=== PATIENT | female | born 1985 | race Caucasian/White ===

== ENCOUNTER 2017-01-24 16:27 | Emergency (ER) | payer BC ==
[2017-01-24 17:20] VITALS: BP 134/86
--- NOTE | 2017-01-24 17:24 | ED.ADGEN ---
Past History Past Medical History: Diabetes Past Surgical History: Cholecystectomy, , Other Alcohol Use: None Drug Use: None Adult General HPI HPI Patient is a 31-year-old female presents emergency department complaining of vaginal bleeding that has been ongoing intermittently for last 3 weeks. She is proximally 6 weeks . She is a . She has had serial clots from 3 times previous to today and they have been continuing to increase. However, the patient did have a clot that she noticed early this morning prior to her shower. She has had no bleeding since that time. She did previously go to [facility] but got tired of waiting after they colin her labs and decided to come here. Review of Systems Review of Systems Constitutional: Denies fever or chills [] Eyes: Denies change in visual acuity, redness, or eye pain [] HENT: Denies nasal congestion or sore throat [] Respiratory: Denies cough or shortness of breath [] Cardiovascular: No additional information not addressed in HPI [] GI: Denies abdominal pain, nausea, vomiting, bloody stools or diarrhea [] : Denies dysuria or hematuria [] Musculoskeletal: Denies back pain or joint pain [] Integument: Denies rash or skin lesions [] Neurologic: Denies headache, focal weakness or sensory changes [] Endocrine: Denies polyuria or polydipsia [] Allergies Allergies Allergies Coded Allergies Type Severity Reaction Last Updated Verified No Known Drug Allergies 02/13/16 No Physical Exam Physical Exam Constitutional: Well developed, well nourished, no acute distress, non-toxic appearance. [] HENT: Normocephalic, atraumatic, bilateral external ears normal, oropharynx moist, no oral exudates, nose normal. [] Eyes: PERRLA, EOMI, conjunctiva normal, no discharge. [] Neck: Normal range of motion, no tenderness, supple, no stridor. [] Cardiovascular:Heart rate regular rhythm, no murmur [] Lungs & Thorax: Bilateral breath sounds clear to auscultation [] Abdomen: Bowel sounds normal, soft, no tenderness, no masses, no pulsatile masses. [] Skin: Warm, dry, no erythema, no rash. [] Back: No tenderness, no CVA tenderness. [] Extremities: No tenderness, no cyanosis, no clubbing, ROM intact, no edema. [] Neurologic: Alert and oriented X 3, normal motor function, normal sensory function, no focal deficits noted. [] Psychologic: Affect normal, judgement normal, mood normal. [] Current Patient Data Vital Signs Vital Signs Date Time Temp Pulse Resp B/P Pulse Ox O2 Delivery O2 Flow Rate FiO2 01/24/17 16:27 97.9 73 20 Room Air EKG EKG [] Radiology/Procedures Radiology/Procedures [] Course & Med Decision Making Course & Med Decision Making Pertinent Labs and Imaging studies reviewed. (See chart for details) The patient looks well here in emergency department. She is having no bleeding. She is having no pain. Her Quant was sent to us from [facility] and is greater than 14,000. I did describe to the patient that at this point in her there would not be much to do about a miscarriage any way. The patient is in a hurry to get out of the department as she is planning to leave on a road trip in the next 15-20 minutes. I did explain that is reassuring that her Quant continues to rise she and that she has had no further bleeding. [] Final Impression Final Impression Threatened Miscarriage[] Problems: Dragon Disclaimer Dragon Disclaimer This electronic medical record was generated, in whole or in part, using a voice recognition dictation system. JANE MORSE MD Jan 24, 2017 17:24
== END 2017-01-24 17:34 | disposition home or self-care (01) ==
LOC: ER 16:27
DX: O20.0 Threatened abortion (principal); E11.9 Type 2 diabetes mellitus without complications; Z3A.01 Less than 8 weeks gestation of pregnancy
CPT/HCPCS: 99281

== ENCOUNTER 2018-09-26 19:22 | Emergency (ER) | payer BC ==
[~2018-09-26] VITALS: Ht 154.9 cm; Wt 135.6 kg
--- NOTE | 2018-09-26 19:26 | ED.ADGEN ---
Past History Past Medical History: Anxiety, Diabetes Past Surgical History: Cholecystectomy, , Other Alcohol Use: None Drug Use: None Adult General Chief Complaint Chief Complaint ".. I ve been having some nausea and vomiting and diarrhea... My whole abdomen hurts..." HPI HPI Patient is a 32 year old female who presents with generalized abdomen pain. Pt. denies any bad food intake. Pt. denies travel or specific ill contacts. Pt. has been eating the past several days, but states she frequently vomits afterwards. Pt. states she had at least 3 diarrhea stools a day. Pt. has hx of IBS , DM and Anxiety. Pt. prior gall bladder surgery, , Lumbar surgery. Pt. is morbidly obese. Pt. normally follows at for care. Review of Systems Review of Systems Constitutional: Denies fever or chills [] Eyes: Denies change in visual acuity, redness, or eye pain [] HENT: Denies nasal congestion or sore throat [] Respiratory: Denies cough or shortness of breath [] Cardiovascular: No additional information not addressed in HPI [] GI: Complaints of abdominal pain, nausea, vomiting, diarrhea [] : Denies dysuria or hematuria [] Musculoskeletal: Denies back pain or joint pain [] Integument: Denies rash or skin lesions [] Neurologic: Denies headache, focal weakness or sensory changes [] Endocrine: Denies polyuria or polydipsia [] All other systems were reviewed and found to be within normal limits, except as documented in this note. Family History Family History Diabetes and hypertension Current Medications Current Medications Current Medications Medications (Trade) Dose Ordered Sig/Ag Start Time Stop Time Status Last Admin Dose Admin Diphenhydramine HCl (Benadryl) 50 mg 1X ONCE 09/27/18 00:30 09/27/18 00:43 DC 09/27/18 00:36 50 MG Famotidine (Pepcid Vial) 20 mg 1X ONCE 09/26/18 19:30 09/26/18 19:39 DC 09/26/18 19:56 20 MG Info (Do NOT chart on this entry -- for MONITORING) 1 each PRN DAILY PRN 09/27/18 00:45 09/27/18 04:00 DC Iohexol (Omnipaque 240 Mg/ml) 30 ml 1X ONCE 09/27/18 00:45 09/27/18 00:46 DC Iohexol (Omnipaque 300 Mg/ml) 60 ml 1X ONCE 09/27/18 00:45 09/27/18 00:46 DC Lactated Ringer's 1,000 ml @ 1,000 mls/hr Q1H 09/26/18 19:28 09/26/18 20:27 DC 09/26/18 19:56 1,000 MLS/HR Magnesium Hydroxide (Milk Of Magnesia) 2,400 mg 1X ONCE 09/26/18 23:45 09/26/18 23:58 DC 09/26/18 23:55 2,400 MG Ondansetron HCl (Zofran) 8 mg 1X ONCE 09/26/18 19:30 09/26/18 19:39 DC 09/26/18 19:56 8 MG Prochlorperazine Edisylate (Compazine) 10 mg 1X ONCE 09/27/18 00:30 09/27/18 00:43 DC 09/27/18 00:36 10 MG See nursing for home medications Allergies Allergies Allergies Coded Allergies Type Severity Reaction Last Updated Verified No Known Drug Allergies 09/27/18 No Physical Exam Physical Exam Constitutional: Moderately acute distress, non-toxic appearance. [] HENT: Normocephalic, atraumatic, bilateral external ears normal, oropharynx moist, no oral exudates, nose normal. [] Eyes: PERRLA, EOMI, conjunctiva normal, no discharge. [] Neck: Normal range of motion, no tenderness, supple, no stridor. [] Cardiovascular:Heart rate regular rhythm, no murmur [] Lungs & Thorax: Bilateral breath sounds equal at apexes with some bilateral crackles at bilateral bases auscultation [] Abdomen: Bowel sounds normal, soft, generalized tenderness, more local sensation in the epigastric area, no masses, no pulsatile masses. [] Old surgery scars. Morbidly obese. Patient declines rectal exam at this time. Patient declines pelvic exam. Skin: Warm, dry, no erythema, no rash. [] Back: No tenderness, no CVA tenderness. [] Extremities: No tenderness, no cyanosis, no clubbing, ROM intact, ankle bilateral edema. [] No true psoas or heel tap. Neurologic: Alert and oriented X 3, normal motor function, normal sensory function, no focal deficits noted. [] Psychologic: Affect anxious, judgement normal, mood normal. [] Current Patient Data Vital Signs Vital Signs Date Time Temp Pulse Resp B/P (MAP) Pulse Ox O2 Delivery O2 Flow Rate FiO2 09/27/18 01:52 75 20 132/90 (104) 96 Room Air 09/26/18 19:25 97.4 Lab Results Laboratory Tests Test 09/26/18 19:45 09/26/18 19:50 Urine Collection Type Unknown Urine Color Yellow Urine Clarity Hazy Urine pH 7.5 Urine Specific [place] 1.015 Urine Protein Neg (NEG-TRACE) Urine Glucose (UA) 100 mg/dL (NEG) Urine Ketones (Stick) Neg mg/dL (NEG) Urine Blood Neg (NEG) Urine Nitrite Neg (NEG) Urine Bilirubin Neg (NEG) Urine Urobilinogen Dipstick 0.2 mg/dL (0.2 mg/dL) Urine Leukocyte Esterase Neg (NEG) Urine RBC Occ /HPF (0-2) Urine WBC 1-4 /HPF (0-4) Urine Squamous Epithelial Cells Many /LPF Urine Amorphous Sediment Present /HPF Urine Bacteria Few /HPF (0-FEW) Urine Opiates Screen Neg (NEG) Urine Methadone Screen Neg (NEG) Urine Barbiturates Neg (NEG) Urine Phencyclidine Screen Neg (NEG) Urine Amphetamine/Methamphetamine Neg (NEG) Urine Benzodiazepines Screen Neg (NEG) Urine Cocaine Screen Neg (NEG) Urine Cannabinoids Screen Neg (NEG) Urine Ethyl Alcohol Neg (NEG) White Blood Count 8.1 x10^3/uL (4.0-11.0) Red Blood Count 4.48 x10^6/uL (3.50-5.40) Hemoglobin 12.4 g/dL (12.0-15.5) Hematocrit 37.4 % (36.0-47.0) Mean Corpuscular Volume 84 fL (79-100) Mean Corpuscular Hemoglobin 28 pg (25-35) Mean Corpuscular Hemoglobin Concent 33 g/dL (31-37) Red Cell Distribution Width 13.9 % (11.5-14.5) Platelet Count 383 x10^3/uL (140-400) Neutrophils (%) (Auto) 65 % (31-73) Lymphocytes (%) (Auto) 26 % (24-48) Monocytes (%) (Auto) 7 % (0-9) Eosinophils (%) (Auto) 2 % (0-3) Basophils (%) (Auto) 1 % (0-3) Neutrophils # (Auto) 5.3 x10^3uL (1.8-7.7) Lymphocytes # (Auto) 2.1 x10^3/uL (1.0-4.8) Monocytes # (Auto) 0.5 x10^3/uL (0.0-1.1) Eosinophils # (Auto) 0.2 x10^3/uL (0.0-0.7) Basophils # (Auto) 0.1 x10^3/uL (0.0-0.2) POC Urine HCG, Qualitative hcg negative (Negative) Sodium Level 139 mmol/L (136-145) Potassium Level 4.2 mmol/L (3.5-5.1) Chloride Level 100 mmol/L (98-107) Carbon Dioxide Level 29 mmol/L (21-32) Anion Gap 10 (6-14) Blood Urea Nitrogen 11 mg/dL (7-20) Creatinine 0.8 mg/dL (0.6-1.0) Estimated GFR (Cockcroft-Gault) 82.1 Glucose Level 108 mg/dL (70-99) H Calcium Level 9.3 mg/dL (8.5-10.1) Total Bilirubin 0.3 mg/dL (0.2-1.0) Direct Bilirubin 0.1 mg/dL (0.0-0.2) Aspartate Amino Transferase (AST) 40 U/L (15-37) H Alanine Aminotransferase (ALT) 49 U/L (14-59) Alkaline Phosphatase 65 U/L (46-116) Total Protein 8.0 g/dL (6.4-8.2) Albumin 3.5 g/dL (3.4-5.0) EKG EKG [] Radiology/Procedures Radiology/Procedures CT findings show mild. Cystic inflammatory changes consistent with possible cystitis. Fatty liver changes. No evidence of bowel obstruction or inflammation. Appendix is normal. Course & Med Decision Making Course & Med Decision Making Pertinent Labs and Imaging studies reviewed. (See chart for details). She stay on a clear fluid diet only. No solid or milk products. Follow-up primary care. Take Zofran for nausea and vomiting. Tylenol and ibuprofen for pain. Must have reexam if no improvement. At time of discharge patient reports marked improvement. Patient refuses admission at this time. [] Final Impression Final Impression 1. Nausea, Vomiting , Diarrhea. 2. Abdomen Pain[] Dragon Disclaimer Dragon Disclaimer This electronic medical record was generated, in whole or in part, using a voice recognition dictation system. LARS KRAUSE MD Sep 26, 2018 19:25
[2018-09-26] MEDS ORDERED: IV RINGERS SOLUTION,LACTATED 1,000 ML IV SCH (19:28)
[2018-09-26] MEDS ORDERED: FAMOTIDINE 20 MG/2 ML VIAL IVP ONE (19:30)
[2018-09-26] MEDS ORDERED: ONDANSETRON PF 4 MG/2 ML VIAL. IV ONE (19:30)
[2018-09-26 20:09] LABS: AMPHETAMINE/METHAMPHETAMINE NEG (NEG); BARBITURATES NEG (NEG); BENZODIAZEPINES NEG (NEG); CANNABINOIDS NEG (NEG); COCAINE NEG (NEG); METHADONE NEG (NEG); OPIATES NEG (NEG); PHENCYCLIDINE NEG (NEG)
[2018-09-26 20:10] LABS: BACTERIA,URINE FEW /HPF (0-FEW); BILIRUBIN,URINE NEG (NEG); CLARITY,URINE HAZY; COLOR,URINE YELLOW; GLUCOSE,URINE 100 mg/dL (NEG); NITRITE,URINE NEG (NEG); RBC,URINE OCC /HPF (0-2); SQUAMOUS EPITHELIAL CELL,UR MANY /LPF; UROBILINOGEN,URINE 0.2 mg/dL (0.2 mg/dL)
[2018-09-26 20:11] LABS: AMORPHOUS SEDIMENT,UR PRESENT /HPF
[2018-09-26 20:14] LABS: BASO # 0.1 x10^3/uL (0.0-0.2); BASO % 1 % (0-3); EOS # 0.2 x10^3/uL (0.0-0.7); EOS % 2 % (0-3); HEMATOCRIT 37.4 % (36.0-47.0); HEMOGLOBIN 12.4 g/dL (12.0-15.5); LYMPH # 2.1 x10^3/uL (1.0-4.8); LYMPH % 26 % (24-48); MEAN CORPUSCULAR HEMOGLOBIN 28 pg (25-35); MEAN CORPUSCULAR HGB CONC 33 g/dL (31-37); MEAN CORPUSCULAR VOLUME 84 fL (79-100); MONO # 0.5 x10^3/uL (0.0-1.1); MONO % 7 % (0-9); NEUT # 5.3 x10^3uL (1.8-7.7); NEUT % 65 % (31-73); PLATELET COUNT 383 x10^3/uL (140-400); RED BLOOD COUNT 4.48 x10^6/uL (3.50-5.40); RED CELL DISTRIBUTION WIDTH 13.9 % (11.5-14.5); WHITE BLOOD COUNT 8.1 x10^3/uL (4.0-11.0)
[2018-09-26 20:25] LABS: ALBUMIN 3.5 g/dL (3.4-5.0); CALCIUM 9.3 mg/dL (8.5-10.1); CREATININE 0.8 mg/dL (0.6-1.0); DIRECT BILIRUBIN 0.1 mg/dL (0.0-0.2); GFR 82.1; POTASSIUM 4.2 mmol/L (3.5-5.1); TOTAL BILIRUBIN 0.3 mg/dL (0.2-1.0)
--- NOTE | 2018-09-26 22:04 | RAD ---
EXAM: Frontal view of the chest, AP views of the abdomen in upright and supine positions. CLINICAL INDICATION: AAS - GENERALIZED ABDOMINAL PAIN TODAY COMPARISON: None. FINDINGS and IMPRESSION: The right costophrenic angle is not included in the [id number]. The heart is not enlarged. Mediastinal and hilar contours are normal. No focal parenchymal airspace opacity. No pleural effusion or pneumothorax. No abnormal small or large bowel dilatation. Moderate colonic stool content. No abnormal soft tissue mass effect. No suspicious calcifications are seen. No free intraperitoneal gas. Cholecystectomy clips are seen. Electronically signed by: Phil Chiu MD (09/26/2018 10:01 PM) [facility]
[2018-09-26] MEDS ORDERED: MAGNESIUM HYDROXIDE 2,400 MG/30 ML ORAL.SUSP. PO ONE (23:45)
[2018-09-27] MEDS ORDERED: diphenhydrAMINE 50 MG/ML VIAL IM ONE (00:15)
[2018-09-27] MEDS ORDERED: PROCHLORPERAZINE 10 MG/2 ML VIAL. IM ONE (00:15)
[2018-09-27] MEDS ORDERED: ONDA8TAB12 PO (00:23)
[2018-09-27] MEDS ORDERED: PROCHLORPERAZINE 10 MG/2 ML VIAL. IV ONE (00:30)
[2018-09-27] MEDS ORDERED: diphenhydrAMINE 50 MG/ML VIAL IV ONE (00:30)
[2018-09-27] MEDS ORDERED: IOHEXOL 240 MG/ML 50ML VIAL. PO ONE ×2 (00:45)
[2018-09-27] MEDS ORDERED: CONTRAST GIVEN MC PRN (00:45)
[2018-09-27] MEDS ORDERED: IOHEXOL 300 MG/ML 75 ML VIAL. IV ONE ×2 (00:45)
[2018-09-27 01:52] VITALS: BP 132/90
--- NOTE | 2018-09-27 02:50 | RAD ---
PQRS Compliance Statement: One or more of the following individualized dose reduction techniques were utilized for this examination: 1. Automated exposure control 2. Adjustment of the mA and/or kV according to patient size 3. Use of iterative reconstruction technique CT abdomen/pelvis with contrast 09/27/2018 2:02 AM INDICATION: Abdominal pain for 3 weeks, worsening today COMPARISON: Acute abdominal series September 26, 2018 TECHNIQUE: Multiple axial CT images of the abdomen and pelvis were obtained after the intravenous administration of 75 mL Omnipaque 300. Coronal and sagittal reformats are provided. FINDINGS: Visualized portions of the lung bases are clear. Heart size is within normal limits. No suspicious hepatic masses are identified. Diffuse hypoattenuation of the hepatic parenchyma is suggestive of hepatic steatosis. Liver is homogeneous in enhancement. Spleen, bilateral adrenal glands, and pancreas are normal in appearance. Gallbladder surgically absent. The abdominal aorta is normal in course and caliber. There are no pathologically enlarged lymph nodes in the abdomen and pelvis. There is no abdominal free fluid. There is no free intraperitoneal air. Oral contrast was administered. Opacified bowel loops demonstrate normal mucosal fold pattern. Small and large bowel are normal in caliber. There is no evidence for bowel obstruction. There are no pericolonic inflammatory changes. A normal, nondilated appendix is visualized without adjacent inflammatory changes. The kidneys enhance symmetrically. There is no suspicious renal mass. There is no hydronephrosis. There are no suspected calculi within the kidneys, ureters or urinary bladder. Mild pericystic inflammatory changes are identified which may be seen in the setting of cystitis. Uterus and adnexa are normal in appearance by CT. No suspicious osseous abnormality is identified. IMPRESSION: 1. Mild pericystic inflammatory changes. Correlate with history of cystitis. 2. Diffuse hepatic steatosis. 3. No evidence for bowel structure or inflammation. Appendix is normal. Electronically signed by: Tresa Wong MD (09/27/2018 2:46 AM) [facility]
== END 2018-09-27 03:57 | disposition home or self-care (01) ==
LOC: ER 19:22
DX: R10.84 Generalized abdominal pain (principal); R11.2 Nausea with vomiting, unspecified; R19.7 Diarrhea, unspecified; F41.9 Anxiety disorder, unspecified; E11.9 Type 2 diabetes mellitus without complications; Z90.49 Acquired absence of other specified parts of digestive tract; Z98.890 Other specified postprocedural states
CPT/HCPCS: 36415; 74022; 74177; 80048; 80076; 80307; 81001; 81025; 85025; 96361; 96374; 96375; 99285; J0780; J1200; J2405; J3490; J7120; Q9967; Q9966

== ENCOUNTER 2019-06-16 13:23 | Emergency (ER) | payer BC ==
[~2019-06-16] VITALS: Ht 180.3 cm; Wt 86.2 kg
[~2019-06-16 13:23] MED LIST: ONDA8TAB12 PO
[2019-06-16] MEDS ORDERED: IV NORMAL SALINE 1,000ML 1,000 ML IV SCH (15:20)
--- NOTE | 2019-06-16 15:22 | PHYS DOC ---
Past History Past Medical History: Anxiety, Diabetes Past Surgical History: Cholecystectomy, , Other Alcohol Use: None Drug Use: None Adult General Chief Complaint Chief Complaint: ABDOMINAL PAIN HPI HPI Patient is a 33 year old female who presents with left-sided abdominal pain. Patient notes that she has been having pain for the last 4-5 days along the left side of her abdomen. States it is in her upper abdomen near her rib cage. Also notes that she has noticed what she believes is a possible cyst in the rectal area. This is tender and painful and has been present over the past week. Denies any abnormal drainage from the cyst. Notes that the pain along the left side of her body worsens with movement. States that the pain radiates around towards her upper back. Denies any known injury. Has not been having any feve rs, diarrhea, nausea, or vomiting. Has had history of bariatric surgery in the past and denies any complications related to this. Has been able to eat and drink without difficulty. Review of Systems Review of Systems Constitutional: Denies fever or chills [] Eyes: Denies change in visual acuity, redness, or eye pain [] HENT: Denies nasal congestion or sore throat [] Respiratory: Denies cough or shortness of breath [] Cardiovascular: Denies substernal chest pain or edema[] GI: Abdominal pain, rectal pain, denies nausea, vomiting, bloody stools or diarrhea [] : Denies dysuria or hematuria [] Musculoskeletal: Left-sided rib pain, denies back pain or joint pain [] Integument: Denies rash or skin lesions [] Neurologic: Denies headache, focal weakness or sensory changes [] All other systems were reviewed and found to be within normal limits, except as documented in this note. Allergies Allergies Allergies Coded Allergies Type Severity Reaction Last Updated Verified No Known Drug Allergies 09/27/18 No Physical Exam Physical Exam Constitutional: Alert, afebrile, appears in mild to moderate discomfort. [] HENT: Normocephalic, atraumatic, bilateral external ears normal, oropharynx moist, no oral exudates, nose normal. [] Eyes: PERRLA, EOMI, conjunctiva normal, no discharge. [] Neck: Normal range of motion, no tenderness, supple, no stridor. [] Cardiovascular:Heart rate regular rhythm, no murmur [] Lungs & Thorax: Bilateral breath sounds clear to auscultation, tenderness palpation along anterior lateral chest wall causing reproducible symptoms. [] Abdomen: Bowel sounds normal, soft, no tenderness in all 4 quadrants, no masses, no pulsatile masses. : 1.5 cm external hemorrhoid tender to palpation, no erythema, no drainage, no active bleeding.[] Skin: Warm, dry, no erythema, no rash. [] Back: No tenderness, no CVA tenderness. [] Extremities: No tenderness, no cyanosis, no clubbing, ROM intact, no edema. [] Neurologic: Alert and oriented X 3, normal motor function, normal sensory function, no focal deficits noted. [] Current Patient Data Vital Signs Vital Signs Date Time Temp Pulse Resp B/P (MAP) Pulse Ox O2 Delivery O2 Flow Rate FiO2 06/16/19 17:01 18 96 Room Air Lab Results Laboratory Tests Test 06/16/19 16:36 White Blood Count 8.6 x10^3/uL Red Blood Count 4.25 x10^6/uL Hemoglobin 10.5 g/dL Hematocrit 33.6 % Mean Corpuscular Volume 79 fL Mean Corpuscular Hemoglobin 25 pg Mean Corpuscular Hemoglobin Concent 31 g/dL Red Cell Distribution Width 17.8 % Platelet Count 434 x10^3/uL Neutrophils (%) (Auto) 76 % Lymphocytes (%) (Auto) 17 % Monocytes (%) (Auto) 6 % Eosinophils (%) (Auto) 0 % Basophils (%) (Auto) 0 % Neutrophils # (Auto) 6.5 x10^3uL Lymphocytes # (Auto) 1.5 x10^3/uL Monocytes # (Auto) 0.5 x10^3/uL Eosinophils # (Auto) 0.0 x10^3/uL Basophils # (Auto) 0.0 x10^3/uL Platelet Estimate Pending Urine Collection Type Unknown Urine Color Angy Urine Clarity Hazy Urine pH 8.0 Urine Specific [place] 1.015 Urine Protein 30 mg/dl Urine Glucose (UA) Neg mg/dL Urine Ketones (Stick) 15 mg/dL Urine Blood Trace Urine Nitrite Neg Urine Bilirubin Neg Urine Urobilinogen Dipstick 0.2 mg/dL Urine Leukocyte Esterase Neg Urine RBC 1-2 /HPF Urine WBC 1-4 /HPF Urine Squamous Epithelial Cells Few /LPF Urine Bacteria Few /HPF Urine Hyaline Casts Occ /HPF Urine Mucus Mod /LPF Sodium Level 142 mmol/L Potassium Level 3.9 mmol/L Chloride Level 104 mmol/L Carbon Dioxide Level 30 mmol/L Anion Gap 8 Blood Urea Nitrogen 11 mg/dL Creatinine 0.6 mg/dL Estimated GFR (Cockcroft-Gault) 113.8 BUN/Creatinine Ratio 18 Glucose Level 88 mg/dL Calcium Level 8.4 mg/dL Total Bilirubin 0.2 mg/dL Aspartate Amino Transf (AST/SGOT) 24 U/L Alanine Aminotransferase (ALT/SGPT) 23 U/L Alkaline Phosphatase 102 U/L Total Protein 7.0 g/dL Albumin 3.0 g/dL Albumin/Globulin Ratio 0.8 Current Medications Medications (Trade) Dose Ordered Sig/Ag Route PRN Reason Start Time Stop Time Status Last Admin Dose Admin Fentanyl Citrate (Fentanyl 2ml Vial) 50 mcg PRN Q15MIN PRN IV PAIN GREATER THAN 3/10 06/16/19 15:30 06/17/19 15:29 06/16/19 17:01 Sodium Chloride 1,000 ml @ 1,000 mls/hr Q1H IV 06/16/19 15:20 06/16/19 16:19 DC 06/16/19 17:01 Ondansetron HCl (Zofran) 4 mg 1X ONCE IV 06/16/19 15:30 06/16/19 15:31 DC 06/16/19 17:01 EKG EKG Not performed[] Radiology/Procedures Radiology/[place] [address] IMAGING REPORT Signed PATIENT: ELSY KIM SACCOUNT: [id number] : 1985 LOCATION: ER AGE: 33 SEX: F EXAM STATUS: REG ER ORD. PHYSICIAN: LOUIS FRANCIS MD REASON: left sided abdominal pain PROCEDURE: ACUTE ABDOMEN SERIES ACUTE ABDOMEN SERIES History: Left-sided abdominal pain. Comparison: CT abdomen and pelvis with contrast, September 27, 2018. Findings: Frontal chest and supine and upright views of the abdomen. Cardiomediastinal silhouette is normal. There is no pleural effusion or pneumothorax. The lungs are clear. No pneumoperitoneum is identified. No dilated air-filled loops of bowel are seen. Bowel gas pattern is nonobstructive. Cholecystectomy clips. There is suture material in the left upper abdomen. Hepatomegaly. Bones unremarkable. IMPRESSION: 1. No acute cardiopulmonary process. 2. Nonobstructive bowel gas pattern. 3. Hepatomegaly. Electronically signed by: Raleigh Bertrand MD (06/16/2019 3:42 PM) [id number] DICTATED AND SIGNED BY: RALEIGH BERTRAND MD DATE: 06/16/19 1542 CC: LOUIS FRANCIS MD; SHELLI ESCOBEDO MD ~ [] Course & Med Decision Making Course & Med Decision Making Pertinent Labs and Imaging studies reviewed. (See chart for details) Patient was given IV fluids, fentanyl, and Zofran. Lab work shows no evidence of acute abnormality. The patient's exam is consistent with chest wall pain as the patient's abdominal exam is completely benign at this time. The patient's cyst appears to be a thrombosed hemorrhoid. Given the chronicity of symptoms re lated to the hemorrhoid, emergency department intervention is not indicated and may result in high risk of bleeding. Recommended use of Sitz baths and Recticare for treatment of hemorrhoid pain and recommended follow-up with general surgery for reevaluation in the next 5-7 days. Prescribed Flexeril for treatment of acute musculoskeletal chest wall pain. Advised follow-up with pr imary doctor in the next 5 days for reevaluation and return to emergency department for any worsening symptoms. Patient was understanding and in agreement with treatment plan.[] Dragon Disclaimer Dragon Disclaimer This electronic medical record was generated, in whole or in part, using a voice recognition dictation system. Departure Departure: Impression: Primary Impression: Chest wall pain Additional Impression: External hemorrhoids Disposition: 01 HOME, SELF-CARE Condition: IMPROVED Referrals: SHELLI ESCOBEDO MD (PCP) MARLEN VAZQUEZ MD Patient Instructions: Chest Wall Pain, Hemorrhoids, Sitz Bath Additional Instructions: You may use Recticare available [id number] as directed on packaging for treatment of hemorrhoid pain. Due to this in addition to sitz bath as directed. Follow-up with Dr. Vazquez of general surgery in the next 5-7 days if your symptoms are not improving. Follow-up with your primary doctor in the next 5 days for reevaluation. Return to emergency department for any worsening symptoms. Scripts Cyclobenzaprine Hcl (CYCLOBENZAPRINE HCL) 10 Mg Tablet 1 TAB PO TID PRN for MUSCLE PAIN, #30 TAB Prov: LOUIS FRANCIS MD 06/16/19 Problem Qualifiers LOUIS FRANCIS MD Jun 16, 2019 15:22
[2019-06-16] MEDS ORDERED: ONDANSETRON PF 4 MG/2 ML VIAL. IV ONE (15:30)
--- NOTE | 2019-06-16 15:45 | RAD ---
ACUTE ABDOMEN SERIES History: Left-sided abdominal pain. Comparison: CT abdomen and pelvis with contrast, September 27, 2018. Findings: Frontal chest and supine and upright views of the abdomen. Cardiomediastinal silhouette is normal. There is no pleural effusion or pneumothorax. The lungs are clear. No pneumoperitoneum is identified. No dilated air-filled loops of bowel are seen. Bowel gas pattern is nonobstructive. Cholecystectomy clips. There is suture material in the left upper abdomen. Hepatomegaly. Bones unremarkable. IMPRESSION: 1. No acute cardiopulmonary process. 2. Nonobstructive bowel gas pattern. 3. Hepatomegaly. Electronically signed by: Raleigh Bertrand MD (06/16/2019 3:42 PM) [id number]
[2019-06-16 17:07] LABS: BASO % 0 % (0-3); EOS % 0 % (0-3); HEMATOCRIT 33.6 % (36.0-47.0); HEMOGLOBIN 10.5 g/dL (12.0-15.5); LYMPH # 1.5 x10^3/uL (1.0-4.8); LYMPH % 17 % (24-48); MEAN CORPUSCULAR HEMOGLOBIN 25 pg (25-35); MEAN CORPUSCULAR HGB CONC 31 g/dL (31-37); MEAN CORPUSCULAR VOLUME 79 fL (79-100); MONO # 0.5 x10^3/uL (0.0-1.1); MONO % 6 % (0-9); NEUT # 6.5 x10^3uL (1.8-7.7); NEUT % 76 % (31-73); PLATELET COUNT 434 x10^3/uL (140-400); RED BLOOD COUNT 4.25 x10^6/uL (3.50-5.40); RED CELL DISTRIBUTION WIDTH 17.8 % (11.5-14.5); WHITE BLOOD COUNT 8.6 x10^3/uL (4.0-11.0)
[2019-06-16 17:16] LABS: ALBUMIN/GLOBULIN RATIO 0.8 (1.0-1.7); BILIRUBIN,URINE NEG (NEG); CALCIUM 8.4 mg/dL (8.5-10.1); CLARITY,URINE HAZY; COLOR,URINE AMBER; CREATININE 0.6 mg/dL (0.6-1.0); GFR 113.8; GLUCOSE,URINE NEG (NEG); NITRITE,URINE NEG (NEG); POTASSIUM 3.9 mmol/L (3.5-5.1); TOTAL BILIRUBIN 0.2 mg/dL (0.2-1.0); UROBILINOGEN,URINE 0.2 mg/dL (0.2 mg/dL)
[2019-06-16 17:17] LABS: BACTERIA,URINE FEW /HPF (0-FEW); HYALINE CASTS, URINE OCC /HPF; SQUAMOUS EPITHELIAL CELL,UR FEW /LPF
[2019-06-16] MEDS ORDERED: CYCL-331 PO (17:59)
[2019-06-16 18:00] LABS: U PREG PATIENT NEGATIVE (NEG)
[2019-06-16 18:10] LABS: HYPOCHROMIA MOD; PLT ESTIMATE INCREASED (ADEQUATE)
[2019-06-16 18:11] LABS: ANISOCYTOSIS SLIGHT; MICROCYTOSIS SLIGHT
[2019-06-16 18:25] VITALS: BP 124/87
== END 2019-06-16 18:27 | disposition home or self-care (01) ==
LOC: ER 13:23
DX: K64.4 Residual hemorrhoidal skin tags (principal); R07.81 Pleurodynia; E11.9 Type 2 diabetes mellitus without complications; Z90.49 Acquired absence of other specified parts of digestive tract; Z98.890 Other specified postprocedural states
CPT/HCPCS: 36415; 74022; 80053; 81001; 81025; 85025; 96374; 96375; 99285; J2405; J3010; J7030

== ENCOUNTER 2019-09-23 14:43 | Inpatient (IN) | payer BC ==
[~2019-09-23] VITALS: Ht 162.6 cm; Wt 92.5 kg
[~2019-09-23 14:43] MED LIST changes: +CYCL-331 PO
[2019-09-23] MEDS ORDERED: IV NORMAL SALINE 1,000ML 1,000 ML IV SCH (15:20)
--- NOTE | 2019-09-23 15:28 | PHYS DOC ---
Past History Past Medical History: No Pertinent History Past Surgical History: Cholecystectomy, Smoking: Non-smoker Alcohol Use: None Drug Use: None Adult General Chief Complaint Chief Complaint: FLANK PAIN HPI HPI Patient is a 33-year-old female presents with right flank pain and red urine that began yesterday. She has been having increased urgency and frequency of urination similar to previous urinary tract infections however there is no pain with urination. She has no previous history of kidney stones nor red urine. No previous history of kidney infection. She denies any fever. No relief with home medicines. No nausea or vomiting.[] Review of Systems Review of Systems Constitutional: Denies fever or chills [] Eyes: Denies change in visual acuity, redness, or eye pain [] HENT: Denies nasal congestion or sore throat [] Respiratory: Denies cough or shortness of breath [] Cardiovascular: No chest pain or palpitations[] GI: Denies abdominal pain, nausea, vomiting, bloody stools or diarrhea [] : See history of present illness[] Musculoskeletal: Denies back pain or joint pain [] Integument: Denies rash or skin lesions [] Neurologic: Denies headache, focal weakness or sensory changes [] Endocrine: Denies polyuria or polydipsia [] All other systems were reviewed and found to be within normal limits, except as documented in this note. Allergies Allergies Allergies Coded Allergies Type Severity Reaction Last Updated Verified No Known Drug Allergies 09/27/18 No Physical Exam Physical Exam Constitutional: Well developed, well nourished, no acute distress, non-toxic appearance. [] HENT: Normocephalic, atraumatic, bilateral external ears normal, oropharynx moist, no oral exudates, nose normal. [] Eyes: PERRLA, EOMI, conjunctiva normal, no discharge. [] Neck: Normal range of motion, no tenderness, supple, no stridor. [] Cardiovascular:Heart rate regular rhythm, no murmur [] Lungs & Thorax: Bilateral breath sounds clear to auscultation [] Abdomen: Bowel sounds normal, soft, no tenderness, no masses, no pulsatile masses. [] Skin: Warm, dry, no erythema, no rash. [] Back: No tenderness, mild right costovertebral angle tenderness. [] Extremities: No tenderness, no cyanosis, no clubbing, ROM intact, no edema. [] Neurologic: Alert and oriented X 3, normal motor function, normal sensory function, no focal deficits noted. [] Psychologic: Affect normal, judgement normal, mood normal. [] Current Patient Data Vital Signs Vital Signs Date Time Temp Pulse Resp B/P (MAP) Pulse Ox O2 Delivery O2 Flow Rate FiO2 09/23/19 14:55 97.9 75 18 129/81 (97) 99 Room Air Lab Results Laboratory Tests Test 09/23/19 15:11 POC Urine HCG, Qualitative hcg negative (Negative) EKG EKG [] Radiology/Procedures Radiology/Procedures PROCEDURE: CT ABDOMEN PELVIS WO CONTRAST Examination: CT of the abdomen pelvis without contrast HISTORY: History of flank pain, red urine COMPARISON: 09/27/2018 TECHNIQUE: Axial CT images of the abdomen is performed without contrast. Coronal and sagittal reformats are performed. Exposure: One or more of the following individualized dose reduction techniques were utilized for this examination: 1. Automated exposure control 2. Adjustment of the mA and/or kV according to patient size 3. Use of iterative reconstruction technique FINDINGS: The bibasilar lungs are clear. No evidence of free air identified in the abdomen. The evaluation of the solid organs is limited due to lack of IV contrast. The evaluation of bowel is limited due to lack of oral contrast. The visualized noncontrasted liver, spleen, adrenals grossly appears unremarkable. Cholecystectomy clips identified. Surgical changes identified in the stomach. Mild fluid distended small bowel loops identified in the abdomen. Feces and gas noted in the colon. The appendix is normal. No evidence of intrarenal collecting system calculi identified. There is inflammatory fat stranding identified about the bilateral ureters throughout and around the urinary bladder likely urinary tract infection/cystitis/pyelitis. The caliber of the aorta grossly appears unremarkable. No evidence of lytic bony destructive lesion. IMPRESSION: 1. Inflammatory fat stranding identified about the bilateral ureters and urinary bladder likely urinary tract infection/cystitis/pyelitis. 2. Mild fluid distended small bowel loops, nonspecific.[] Course & Med Decision Making Course & Med Decision Making Pertinent Labs and Imaging studies reviewed. (See chart for details) ED course: Patient arrived, was placed in bed, and tolerated exam well. She was given Toradol as well as IV fluids due to the grossly bloody urine. She was transported to and from [place] with any, patient's. She had good pain control with the Toradol. After the return of the laboratory and imaging findings, these were discussed with the patient voiced understanding. She was given IV antibiotics. Consultation was made with the hospitalist service for admission and he graciously admitted the patient. She was admitted in improved condition with all questions answered. Medical decision making: Patient appears to have urinary tract infection that is ascending up bilateral ureters. No evidence of kidney dysfunction. However, it is noted that she is anemic when compared with previous laboratory studies.[] Dragon Disclaimer Dragon Disclaimer This electronic medical record was generated, in whole or in part, using a voice recognition dictation system. Departure Departure: Impression: Primary Impression: Urinary tract infection Additional Impression: Anemia Disposition: ADMITTED INPATIENT Condition: IMPROVED Referrals: SHELLI ESCOBEDO MD (PCP) Problem Qualifiers Primary Impression: Urinary tract infection Urinary tract infection type: acute pyelonephritis Qualified Codes: N10 - Acute pyelonephritis Additional Impression: Anemia Anemia type: unspecified type Qualified Codes: D64.9 - Anemia, unspecified CHRISTIANO ELLIOTT DO Sep 23, 2019 15:28
[2019-09-23] MEDS ORDERED: KETOROLAC 30 MG/ML VIAL. IVP ONE (15:30)
[2019-09-23 15:37] LABS: BASO % 0 % (0-3); EOS % 1 % (0-3); HEMATOCRIT 26.2 % (36.0-47.0); HEMOGLOBIN 7.9 g/dL (12.0-15.5); LYMPH % 21 % (24-48); MEAN CORPUSCULAR HEMOGLOBIN 24 pg (25-35); MEAN CORPUSCULAR HGB CONC 30 g/dL (31-37); MEAN CORPUSCULAR VOLUME 78 fL (79-100); MONO # 0.7 x10^3/uL (0.0-1.1); MONO % 8 % (0-9); NEUT # 6.5 x10^3uL (1.8-7.7); NEUT % 70 % (31-73); PLATELET COUNT 384 x10^3/uL (140-400); RED BLOOD COUNT 3.39 x10^6/uL (3.50-5.40); RED CELL DISTRIBUTION WIDTH 15.1 % (11.5-14.5); WHITE BLOOD COUNT 9.3 x10^3/uL (4.0-11.0)
[2019-09-23 15:44] LABS: ALBUMIN 2.6 g/dL (3.4-5.0); ALBUMIN/GLOBULIN RATIO 0.7 (1.0-1.7); CALCIUM 7.7 mg/dL (8.5-10.1); CREATININE 0.6 mg/dL (0.6-1.0); GFR 113.8; POTASSIUM 3.6 mmol/L (3.5-5.1); TOTAL BILIRUBIN 0.2 mg/dL (0.2-1.0); TOTAL PROTEIN 6.3 g/dL (6.4-8.2)
--- NOTE | 2019-09-23 15:45 | RAD ---
Examination: CT of the abdomen pelvis without contrast HISTORY: History of flank pain, red urine COMPARISON: 09/27/2018 TECHNIQUE: Axial CT images of the abdomen is performed without contrast. Coronal and sagittal reformats are performed. Exposure: One or more of the following individualized dose reduction techniques were utilized for this examination: 1. Automated exposure control 2. Adjustment of the mA and/or kV according to patient size 3. Use of iterative reconstruction technique FINDINGS: The bibasilar lungs are clear. No evidence of free air identified in the abdomen. The evaluation of the solid organs is limited due to lack of IV contrast. The evaluation of bowel is limited due to lack of oral contrast. The visualized noncontrasted liver, spleen, adrenals grossly appears unremarkable. Cholecystectomy clips identified. Surgical changes identified in the stomach. Mild fluid distended small bowel loops identified in the abdomen. Feces and gas noted in the colon. The appendix is normal. No evidence of intrarenal collecting system calculi identified. There is inflammatory fat stranding identified about the bilateral ureters throughout and around the urinary bladder likely urinary tract infection/cystitis/pyelitis. The caliber of the aorta grossly appears unremarkable. No evidence of lytic bony destructive lesion. IMPRESSION: 1. Inflammatory fat stranding identified about the bilateral ureters and urinary bladder likely urinary tract infection/cystitis/pyelitis. 2. Mild fluid distended small bowel loops, nonspecific. Electronically signed by: Barrie Jiang MD (09/23/2019 3:42 PM) [id number]
[2019-09-23] MEDS ORDERED: IV NORMAL SALINE 50ML 50 ML ONE (16:11)
[2019-09-23] MEDS ORDERED: cefTRIAXone SODIUM 1 GM VIAL ONE (16:11)
[2019-09-23 16:53] LABS: COLOR,URINE RED
[2019-09-23 16:54] LABS: BACTERIA,URINE FEW /HPF (0-FEW); BILIRUBIN,URINE NEG (NEG); CLARITY,URINE TURBID; GLUCOSE,URINE NEG (NEG); NITRITE,URINE NEG (NEG); RBC,URINE TNTC /HPF (0-2); SQUAMOUS EPITHELIAL CELL,UR OCC /LPF; UROBILINOGEN,URINE 0.2 mg/dL (0.2 mg/dL)
[2019-09-23] MEDS ORDERED: ONDANSETRON PF 4 MG/2 ML VIAL. IV PRN (17:15)
[2019-09-23] MEDS ORDERED: ACETAMINOPHEN 325 MG TABLET PO PRN (17:15)
--- NOTE | 2019-09-23 19:20 | NUR ---
The patient, ELSY KIM, 33 y/o, F admitted by MICHELLE FARIA MD, was given written information regarding hospital policies, unit procedures and contact persons. Pt arrived to room 121 via gurney, accompanied by [facility] and nursing sup. Pt here for c/o right flank pain and urinary urgency/frequency x1 day. Dx: UTI, pyelonephritis, anemia. HGB 7.9. Denies any urinary pain but has continued sharp and shooting pain to right flank, rates 6/10. Administered PRN morphine per order, pt reports almost immediate relief. PMH and home meds reviewed. Pt lives at home with boyfriend and children. Wishes to receive flu shot, ordered per protocol for AM. Pt is up independently and ambulates frequently, low risk for VTE. Discussed POC, oriented pt to room and unit routines, V/U. Valuables were checked and logged. Left in room with patient.
[2019-09-23] MEDS: IV NORMAL SALINE 1,000ML 1,000 ML IV SCH (20:06)
[2019-09-23] MEDS ORDERED: NORG1TAB7 PO (20:12)
[2019-09-23] MEDS ORDERED: CITA20TA6 PO (20:12)
[2019-09-23] MEDS: MORPHINE SULFATE 2 MG/ML DISP.SYRIN. IV PRN (20:17)
[2019-09-23 21:18] VITALS: BP 121/79
[2019-09-23 23:44] VITALS: BP 119/81
[2019-09-24] MEDS: IV NORMAL SALINE 1,000ML 1,000 ML IV SCH (01:23)
[2019-09-24] MEDS: MORPHINE SULFATE 2 MG/ML DISP.SYRIN. IV PRN (01:23)
[2019-09-24 06:18] VITALS: BP 121/85
[2019-09-24 06:41] LABS: BASO % 1 % (0-3); EOS # 0.1 x10^3/uL (0.0-0.7); EOS % 1 % (0-3); HEMATOCRIT 23.8 % (36.0-47.0); HEMOGLOBIN 7.2 g/dL (12.0-15.5); LYMPH # 2.3 x10^3/uL (1.0-4.8); LYMPH % 44 % (24-48); MEAN CORPUSCULAR HEMOGLOBIN 24 pg (25-35); MEAN CORPUSCULAR HGB CONC 30 g/dL (31-37); MEAN CORPUSCULAR VOLUME 78 fL (79-100); MONO # 0.5 x10^3/uL (0.0-1.1); MONO % 10 % (0-9); NEUT # 2.3 x10^3uL (1.8-7.7); NEUT % 45 % (31-73); PLATELET COUNT 317 x10^3/uL (140-400); RED BLOOD COUNT 3.05 x10^6/uL (3.50-5.40); RED CELL DISTRIBUTION WIDTH 15.1 % (11.5-14.5); WHITE BLOOD COUNT 5.2 x10^3/uL (4.0-11.0)
[2019-09-24 06:48] LABS: CALCIUM 7.4 mg/dL (8.5-10.1); CREATININE 0.6 mg/dL (0.6-1.0); GFR 113.8; POTASSIUM 3.3 mmol/L (3.5-5.1)
[2019-09-24] MEDS ORDERED: POTASSIUM CHLORIDE 20 MEQ TABLET.ER. PO ONE (07:30)
[2019-09-24] MEDS ORDERED: CITALOPRAM 20 MG TABLET. PO SCH (09:00)
[2019-09-24] MEDS ORDERED: FLU VAX QS 2019-20 (36MOS+)/PF 0.5 ML SYRINGE. VAX IM ONE (09:00)
--- NOTE | 2019-09-24 09:56 | NUR ---
NURSING NOTES: PATIENT LEFT AMA. PATIENT GIVEN INSTRUCTIONS OF MEANING OF AMA AND HER RISKS FOR LEAVING. PATIENT GAVE VERBAL UNDERSTANDING AND VOICED SHE HAD NO CHOICE SHE HAD NO ON TO WATCH HER CHILDREN AFTER NOON. PATIENT SIGNED AMA FORM AND LEFT WITH ALL PATIENT BELONGINGS.
== END 2019-09-24 10:01 | disposition left against medical advice (07) | DRG 690 ==
LOC: ER 14:43 → 1 SOUTH 17:44
PROVIDERS: ADMIT Internal Medicine; ATTEND Internal Medicine
DX: N10 Acute pyelonephritis (principal); D64.9 Anemia, unspecified; Z90.49 Acquired absence of other specified parts of digestive tract
CPT/HCPCS: 36415; 74176; 80048; 80053; 81001; 81025; 83690; 85025; 87086; 87186; 96361; 96365; 96375; J0696; J1885; J2270; 99285-25; J7030